=== PATIENT | male | born 1950 | race Caucasian/White ===

== ENCOUNTER 2018-12-31 08:46 | Inpatient (IN) ==
--- NOTE | 2018-12-31 08:31 | Anesthesia Evaluation PreOp ---
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 HX Other Medical History: Hepatic (cirrhosis) Anesthesia History: Past Anesthesia, Problems (PONV) Alcohol Use: none Drug use: none Medications and Allergies Cholecalciferol (D-3) [Vitamin D] 1,000 unit PO DAILY 02/02/18 [History] Cyanocobalamin (Vitamin B-12) [Vitamin B-12] 1,000 mcg PO DAILY 02/02/18 [History] Furosemide [Lasix] 20 mg PO DAILY 02/02/18 [History] Ipratropium/Albuterol Neb [Duoneb] 3 ml IH Q4-6H PRN 02/02/18 [History] Levothyroxine [Synthroid] 25 mcg PO 30 02/02/18 [History] Magnesium Oxide [Magnesium] 400 mg PO DAILY 02/02/18 [History] Metoprolol Tartrate 50 mg PO BID 02/02/18 [History] Ondansetron HCl 4 mg PO Q8H PRN 02/02/18 [History] Oxycodone HCl 5 mg PO BID 02/02/18 [History] Pantoprazole Sodium [Protonix] 40 mg PO DAILY 02/02/18 [History] Potassium Chloride [K-Tab ER] 20 meq PO BID 02/02/18 [History] Pravastatin Sodium [Pravachol] 40 mg PO HS 02/02/18 [History] Tamsulosin [Flomax] 0.4 mg PO DAILY 02/02/18 [History] Vitamin E (Dl,Tocopheryl Acet) [Vitamin E] 400 unit PO DAILY 02/02/18 [History] Iron Ps Complex/B12/Folic Acid [Poly-Iron 150 Forte Capsule] 1 each PO BID 03/11/18 [History] Polyethylene Glycol 3350 [MiraLAX] 17 gm PO DAILY 03/11/18 [History] Tizanidine HCl 4 mg PO DAILY 03/11/18 [History] Rivaroxaban [Xarelto] 10 mg PO DAILY #30 tablet 04/01/18 [Rx] Allergy/AdvReac Type Severity Reaction Status Date / Time heparin Allergy Rash Verified 12/04/18 14:32 levothyroxine sodium Allergy Rash Verified 12/04/18 14:32 sulfamethoxazole Allergy Rash Verified 12/04/18 14:32 [From Bactrim] trimethoprim [From Bactrim] Allergy Rash Verified 12/04/18 14:32 - Meds/Allergy Pre-op Review Medications Reviewed: Yes Allergies Reviewed: Yes Beta Blockers on Current Med List: Yes If Beta Blockers taken, Date/Time (Last Dose taken): today 0700 Anesthesia Results - Labs Laboratory Tests 12/28/18 12/28/18 10:20 10:20 Hgb 12.7 L Hct 39.4 Plt Count 72 L Sodium 141 Potassium 3.5 BUN 9 Creatinine 0.89 - Imaging EKG: report reviewed (SINUS RHYTHM) Anesthesia Exam Selected Entries 12/31/18 09:09 Temperature 98.2 F Pulse Rate 73 Respiratory Rate 18 Blood Pressure 114/74 O2 Sat by Pulse Oximetry 99 Weight: 93kg BMI 32 NPO (# of Hours): 8 - HEENT Pupil (Motor): EOMI Mallampati: II Teeth: Edentulous Oral Opening: Greater than 3 - 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
[2018-12-31] MEDS ORDERED: CeFAZolin Syr 2,000MG/20 ML 2,000 MG/20 ML SYRINGE IVPB ONE (09:04)
[2018-12-31] MEDS ORDERED: Ringers Solution, Lactated 1,000 ML IVC SCH ×2 (09:15→09:30)
[2018-12-31] MEDS ORDERED: *HR* Promethazine 25 MG/ML VIAL IVP PRN (09:21)
[2018-12-31] MEDS ORDERED: *HR* OxyCODONE Immed Rel 5 MG TABLET PO PRN (09:21)
[2018-12-31] MEDS ORDERED: *HR* HYDROmorphone (PF) 1 MG/ML SYRINGE IVP PRN (09:21)
[2018-12-31] MEDS ORDERED: Ketorolac 15 MG/ML VIAL IVP ONE (09:21)
--- NOTE | 2018-12-31 09:55 | History & Physical Report ---
Date of Encounter: 12/31/18 Time of Encounter: 09:55 24 Hour HP Update - Instructions Instructions: If the History and Physical is less than 30 days old and was completed prior to A.M. admission and or procedure and has NOT been updated on calendar day of procedure please complete this update prior to performing procedure. - Update Patient reports changes in Medical Condition: No Changes in examination, assessment, or condition: No Changes in Medication: No Preop tests/diagnostics Reviewed: Yes Pre-Op MRSA Screen: Negative Surgery Remains Indicated: Yes Consent for Planned Operative Procedure(s) Verified: Yes - Pre-Operative Checklist Preoperative Checklist Indicated: Yes Prophylactic Antibiotic Ordered: Yes Home Medications Include Beta Grace: Yes Beta Grace Taken Today (Day of Surgery): Yes Beta Grace Taken Yesterday (Day Prior to Surgery): Yes Is VTE Prophylaxis Indicated?: Yes
[2018-12-31] MEDS ORDERED: Lidocaine 1% 20 ML MDV ONE (10:08)
--- NOTE | 2018-12-31 11:21 | Operative Note ---
Date of procedure: 12/31/18 Pre-op diagnosis: pleural effusion Post-op diagnosis: same Procedure: bronchoscopy right vats pleural bx pleurx catheter insertion Implants: pleurx Anesthesia: GETA Surgeon: Jass Reyes Was there an psychological assistant present: No Estimated blood loss (cc): 10 Specimen: pleura Condition: stable Disposition: PACU Procedure in Detail: The patient was brought to the operating room and placed on the operating table in the supine position. After undergoing general anesthesia with sequential compressive devices on bilateral lower extremities and perioperative antibiotics on board, bronchoscopy was performed as the patient has had a history of stage III B non-small cell lung cancer treated with concurrent chemotherapy and radiation therapy. There was significant extrinsic compression of the right middle lobe bronchus. No endobronchial masses were appreciated. Patient was placed on the operating room table in the left lateral decubitus position with care to pad all pressure points, prepped, and draped in the usual sterile fashion. 2 thoracoscopy ports are placed and 970 mL of serous fluid was evacuated from the right pleural space. Pleural biopsy obtain what appeared to be chronic pleuritis. The lung only insufflated approximately 85% to fill the thoracic cavity. The Pleurx catheter was placed through the thoracoscopy ports into the pleural space. The incisions were closed in layers of 0 Vicryl, 0 Vicryl, and 4-0 Monocryl subcuticular stitches with dressings consisting of Steri-Strips and sterile gauze. Patient was extubated and taken to the recovery room.
--- NOTE | 2018-12-31 12:08 | Anesthesia Evaluation Post Op ---
Date of Encounter: 12/31/18 Time of Encounter: 12:07 - Vital Signs Vital Signs: Selected Entries 12/31/18 11:49 12/31/18 11:59 Temperature 97.0 F L Pulse Rate 84 Respiratory Rate 16 Blood Pressure 118/73 O2 Sat by Pulse Oximetry 100 - Lungs Lungs: Clear Ascult./Percussion - Airway Airway: Non-obstructed - Cardiovascular Regular Rate - Mental Status Mental Status: Alert & Oriented, Answers Appropriately - Pain Pain Scale: 4 Pain Scale used: Numeric (1 - 10) - Nausea Vomiting Nausea Vomiting: Not Present - Hydration Hydration: Ice chips, Has not voided - Discharge PostOp Status: Transfer Patient to floor
[2018-12-31] MEDS ORDERED: Naloxone 0.4 MG/ML INJ IVP PRN (12:58)
[2018-12-31] MEDS: *HR* HYDROcodone/Acet 5/325 mg TABLET PO PRN ×2 (13:24→19:38)
[2018-12-31] MEDS: Furosemide 40 MG TABLET PO SCH (13:24)
[2018-12-31] MEDS: 0.9 % Sodium Chloride 1,000 ML IVC SCH (13:28)
[2018-12-31] MEDS: Ipratropium/Albuterol Neb 3 ML IH SCH ×3 (13:54→20:14)
[2018-12-31] MEDS: Gabapentin 300 MG CAPSULE PO SCH ×2 (14:40→20:29)
[2018-12-31 19:54] LABS: Immature Granulocytes % 0.3 % (0-4); Mean Platelet Volume 9.3 fL (9.4-12.4); Monocytes % 4.4 %; Red Blood Count 4.84 M/mcL (4.19-5.50)
[2018-12-31 19:55] LABS: Basophils % 0.3 %; Eosinophils % 0.5 %; Hematocrit 42.3 % (37.5-50.1); Hemoglobin 13.6 g/dL (12.9-16.9); Immature Platelets 1.6 % (1.1-6.1); Lymphocytes # 0.2 K/mcL (0.6-4.6); Lymphocytes % 6.5 %; Mean Corpuscular HGB Conc 32.2 g/dL (31.6-35.5); Mean Corpuscular Hemoglobin 28.1 pg (28.0-33.3); Mean Corpuscular Volume 87.4 fL (83.0-100.0); Monocytes # 0.2 K/mcL (0.0-1.3); White Blood Count 3.7 K/mcL (4.3-11.1)
[2018-12-31 20:05] LABS: Neutrophils # 3.3 K/mcL (1.6-8.9); Platelet Count 51 K/mcL (140-400)
[2018-12-31 20:24] LABS: Platelet Estimate Decreased (Normal)
[2018-12-31] MEDS: Levalbuterol Neb 1.25 MG/3 ML IH SCH ×2 (20:25→23:51)
[2018-12-31] MEDS: Ipratropium Neb 0.5 MG NEBULIZER IH SCH ×2 (20:25→23:51)
[2018-12-31] MEDS: Famotidine 20 MG TABLET PO SCH (20:27)
[2018-12-31] MEDS: tiZANidine 4 MG TABLET PO SCH (20:28)
[2018-12-31] MEDS: Sennosides/Docusate Sodium TABLET PO SCH (20:28)
[2018-12-31] MEDS: *HR* OxyCODONE Immed Rel 5 MG TABLET PO SCH (20:28)
[2019-01-01] MEDS: *HR* HYDROcodone/Acet 5/325 mg TABLET PO PRN ×2 (00:26→16:14)
[2019-01-01] MEDS: Ipratropium Neb 0.5 MG NEBULIZER IH SCH ×5 (03:55→20:58)
[2019-01-01] MEDS: Levalbuterol Neb 1.25 MG/3 ML IH SCH ×5 (03:55→20:58)
[2019-01-01] MEDS: 0.9 % Sodium Chloride 1,000 ML IVC SCH (04:59)
[2019-01-01] MEDS: Levothyroxine 25 MCG TABLET PO SCH (04:59)
[2019-01-01 05:37] LABS: Hematocrit 33.4 % (37.5-50.1); Mean Corpuscular HGB Conc 32.6 g/dL (31.6-35.5); Mean Corpuscular Hemoglobin 28.3 pg (28.0-33.3); Mean Corpuscular Volume 86.8 fL (83.0-100.0); Mean Platelet Volume 9.1 fL (9.4-12.4); Red Blood Count 3.85 M/mcL (4.19-5.50); Red Cell Distribution Width 14.8 % (11.5-14.5); White Blood Count 4.5 K/mcL (4.3-11.1)
[2019-01-01 05:39] LABS: Hemoglobin 10.9 g/dL (12.9-16.9); Platelet Count 59 K/mcL (140-400)
[2019-01-01 05:59] LABS: BUN/Creatinine Ratio 16 (6-26); Blood Urea Nitrogen 14 mg/dL (8-23); Calcium 8.8 mg/dL (8.6-10.3); Carbon Dioxide 22 mEq/L (23-29); Chloride 106 mEq/L (98-107); Glucose 144 mg/dL (70-105); Magnesium 1.7 mg/dL (1.6-2.6); Osmolality,Calculated 287 (280-300); Sodium 137 mEq/L (136-145); eGFR For African Americans > 60 (> 60); eGFR For Non-African Americans > 60 (> 60)
[2019-01-01] MEDS: Sennosides/Docusate Sodium TABLET PO SCH ×2 (08:02→19:36)
[2019-01-01] MEDS: Gabapentin 300 MG CAPSULE PO SCH ×3 (08:02→19:36)
[2019-01-01] MEDS: Famotidine 20 MG TABLET PO SCH ×2 (08:03→19:35)
[2019-01-01] MEDS: *HR* OxyCODONE Immed Rel 5 MG TABLET PO SCH ×2 (08:03→19:36)
[2019-01-01] MEDS ORDERED: Magnesium Sulfate 3 GM in 0.9 % Sodium Chloride 100 ML IVPB ONE (09:21)
[2019-01-01] MEDS ORDERED: Potassium Chloride Elixir 20 MEQ/15 ML UDC PO ONE (09:21)
--- NOTE | 2019-01-01 09:59 | Physician Discharge Referral ---
Home Health/Hosp Referral Info Transfer to: Home Health Attending Provider: diana Provider in Charge Post Discharge: Other (wilfredo) Compass Care: drain the pleurx catheter every mon, wed, fri starting 01/04/19 - Diagnosis (1) Pleural cavity effusion Priority: Primary Status: Chronic - Respiratory Orders Smoking Cessation: Smoking cessation has been advised. For more information, call the [place] Tobacco Quit Line at 4-315-JELO-NOW. - Dressing/Wound Care Site: right lateral chest wall Type of Dressing/Treatments w/Frequency: supplied in pleurx home care kit - Diet/Nutrition Diet/Nutrition Orders: Regular - Activity Activity Orders: Up ad miri - Services Needed Following services are medically necessary services: Nursing Other Treatments: drain the pleurx catheter every mon, wed, fri starting 01/04/19 - Transfer Medications Home Medications: Cholecalciferol (D-3) [Vitamin D] 4,000 unit PO DAILY 02/02/18 [History] Cyanocobalamin (Vitamin B-12) [Vitamin B-12] 1,000 mcg PO DAILY 02/02/18 [History] Furosemide [Lasix] 20 mg PO 1200 02/02/18 [History] Ipratropium/Albuterol Neb [Duoneb] 3 ml IH Q4-6H PRN 02/02/18 [History] Levothyroxine [Synthroid] 25 mcg PO 0630 02/02/18 [History] Magnesium Oxide [Magnesium] 400 mg PO DAILY 02/02/18 [History] Metoprolol Tartrate 50 mg PO BID 02/02/18 [History] Ondansetron HCl 4 mg PO Q8H PRN 02/02/18 [History] Oxycodone HCl 5 mg PO BID 02/02/18 [History] Pantoprazole Sodium [Protonix] 40 mg PO DAILY 02/02/18 [History] Potassium Chloride [K-Tab ER] 20 meq PO BID 02/02/18 [History] Pravastatin Sodium [Pravachol] 40 mg PO HS 02/02/18 [History] Tamsulosin [Flomax] 0.4 mg PO DAILY 02/02/18 [History] Iron Ps Complex/B12/Folic Acid [Poly-Iron 150 Forte Capsule] 1 cap PO BID 03/11/18 [History] Polyethylene Glycol 3350 [MiraLAX] 17 gm PO DAILY 03/11/18 [History] Tizanidine HCl 4 mg PO HS 03/11/18 [History] Allergies/Adverse Reactions: Allergy/AdvReac Type Severity Reaction Status Date / Time heparin Allergy Rash Verified 12/31/18 09:38 levothyroxine sodium Allergy Rash Verified 12/31/18 09:38 sulfamethoxazole Allergy Rash Verified 12/31/18 09:38 [From Bactrim] trimethoprim [From Bactrim] Allergy Rash Verified 12/31/18 09:38 Certification: Further, I certify that my clinical findings support that this patient is homebound (i.e. absences from home require considerable and taxing effort and are for medical reasons or [employer]isc[employer] services or infrequently or short duration when for other reasons) because: Homebound Reason: Patient requires assistance of a person or device to safely leave home Attestation: My signature below is to certify that this patient is under my care and that I, or nurse practitioner, or a physician's speech pathologist assistant working with me, has a [id number] encounter with this patient.
--- NOTE | 2019-01-01 10:03 | Cardiothoracic Progress Note ---
Date of Encounter: 01/01/19 Time of Encounter: 10:01 - Assessment and plan (1) Pleural cavity effusion Current Visit: Yes Status: Chronic The assessment and plan as outlined above was discussed with the patient and/or family members who expressed understanding and agreement. All questions were answered. (2) Cancer of upper lobe of right lung Current Visit: No Status: Chronic The assessment and plan as outlined above was discussed with the patient and/or family members who expressed understanding and agreement. All questions were answered. explained to patient no evidence of recurrent disease (3) Hypothyroidism determined by thyroid function test Current Visit: No Status: Chronic The assessment and plan as outlined above was discussed with the patient and/or family members who expressed understanding and agreement. All questions were answered. continue current replacement Vital Signs, Last 4 Hours Temp Pulse Resp BP Pulse Ox 01/01/19 08:15 92 01/01/19 07:39 16 100 01/01/19 07:27 97.7 F 91 18 108/67 99 Oxgyen Flow Rate Oxygen Flow Rate (LPM) 2 Clinical Data, last 8 Hours Output, Urine Amount 0 Weight 12/30/18 12/31/18 01/01/19 23:59 23:59 23:59 Weight 92.533 kg 93.1 kg - Physical Examination General: Conversant, No Apparent Distress, Well developed HEENT: Atraumatic, Normocephaly Cardiac: Reg Rate and Rhythm Incision: No signs of infection, Other (moist dressing changed. informed nurse ) Lungs: Normal Breath Sounds Neuro: Alert and responsive, No focal deficits noted, Cranial nerves intact, Motor nerves intact Abdomen: Soft - Labs 01/01/19 05:14 01/01/19 05:14 Lab Results, Last 24 hours 12/31/18 01/01/19 01/01/19 19:43 05:14 05:14 WBC 3.7 L 4.5 Hgb 13.6 10.9 L D Hct 42.3 33.4 L Plt Count 51 L 59 L Sodium 137 Potassium 4.0 Chloride 106 Carbon Dioxide 22 L BUN 14 Creatinine 0.87 Glucose 144 H Calcium 8.8 Magnesium 1.7 - Imaging Chest Xray: image reviewed Consult Discharge Plan - Plan Referrals: Xochitl Kwok, ANDREEA [Primary Care Provider] -
[2019-01-01] MEDS: Furosemide 40 MG TABLET PO SCH (11:06)
[2019-01-01] MEDS: tiZANidine 4 MG TABLET PO SCH (19:35)
[2019-01-02] MEDS: Ipratropium Neb 0.5 MG NEBULIZER IH SCH ×3 (00:43→07:38)
[2019-01-02] MEDS: Levalbuterol Neb 1.25 MG/3 ML IH SCH ×3 (00:43→07:38)
[2019-01-02] MEDS: Levothyroxine 25 MCG TABLET PO SCH (06:29)
[2019-01-02 07:21] VITALS: BP 102/74
[2019-01-02] MEDS: Sennosides/Docusate Sodium TABLET PO SCH (08:05)
[2019-01-02] MEDS: Gabapentin 300 MG CAPSULE PO SCH (08:05)
[2019-01-02] MEDS: Famotidine 20 MG TABLET PO SCH (08:05)
[2019-01-02] MEDS: *HR* OxyCODONE Immed Rel 5 MG TABLET PO SCH (08:06)
--- NOTE | 2019-01-02 08:53 | Discharge Summary ---
Orders not resulted at time of discharge: Pending orders 12/31/18 10:59 Surgical Pathology [PTH] Routine 12/31/18 19:43 Platelets [BBK] Stat Type and Screen [BBK] Stat Date of Encounter: 01/02/19 Time of Encounter: 08:49 - Discharge Diagnosis (1) Pleural cavity effusion Priority: Primary Status: Chronic (2) Cancer of upper lobe of right lung Priority: Secondary Status: Chronic (3) Hypothyroidism determined by thyroid function test Priority: Secondary Status: Chronic - Hospital Course Hospital course: Mr. Reid is a 68 year old male - Time Spent with Patient Total time spent providing and/or coordinating discharge services: - Discharge Medications Prescriptions: No Action Cholecalciferol (D-3) [Vitamin D] 4,000 unit PO DAILY Cyanocobalamin (Vitamin B-12) [Vitamin B-12] 1,000 mcg PO DAILY Furosemide [Lasix] 20 mg PO 1200 Ipratropium/Albuterol Neb [Duoneb] 3 ml IH Q4-6H PRN PRN Reason: Shortness Of Breath Levothyroxine [Synthroid] 25 mcg PO 0630 Magnesium Oxide [Magnesium] 400 mg PO DAILY Metoprolol Tartrate 50 mg PO BID Ondansetron HCl 4 mg PO Q8H PRN PRN Reason: Nausea Oxycodone HCl 5 mg PO BID Pantoprazole Sodium [Protonix] 40 mg PO DAILY Potassium Chloride [K-Tab ER] 20 meq PO BID Pravastatin Sodium [Pravachol] 40 mg PO HS Tamsulosin [Flomax] 0.4 mg PO DAILY Iron Ps Complex/B12/Folic Acid [Poly-Iron 150 Forte Capsule] 1 cap PO BID Polyethylene Glycol 3350 [MiraLAX] 17 gm PO DAILY Tizanidine HCl 4 mg PO HS Home Medications: Cholecalciferol (D-3) [Vitamin D] 4,000 unit PO DAILY 02/02/18 [History] Cyanocobalamin (Vitamin B-12) [Vitamin B-12] 1,000 mcg PO DAILY 02/02/18 [History] Furosemide [Lasix] 20 mg PO 1200 02/02/18 [History] Ipratropium/Albuterol Neb [Duoneb] 3 ml IH Q4-6H PRN 02/02/18 [History] Levothyroxine [Synthroid] 25 mcg PO 0630 02/02/18 [History] Magnesium Oxide [Magnesium] 400 mg PO DAILY 02/02/18 [History] Metoprolol Tartrate 50 mg PO BID 02/02/18 [History] Ondansetron HCl 4 mg PO Q8H PRN 02/02/18 [History] Oxycodone HCl 5 mg PO BID 02/02/18 [History] Pantoprazole Sodium [Protonix] 40 mg PO DAILY 02/02/18 [History] Potassium Chloride [K-Tab ER] 20 meq PO BID 02/02/18 [History] Pravastatin Sodium [Pravachol] 40 mg PO HS 02/02/18 [History] Tamsulosin [Flomax] 0.4 mg PO DAILY 02/02/18 [History] Iron Ps Complex/B12/Folic Acid [Poly-Iron 150 Forte Capsule] 1 cap PO BID 03/11/18 [History] Polyethylene Glycol 3350 [MiraLAX] 17 gm PO DAILY 03/11/18 [History] Tizanidine HCl 4 mg PO HS 03/11/18 [History] Allergies/Adverse Reactions: Allergy/AdvReac Type Severity Reaction Status Date / Time heparin Allergy Rash Verified 12/31/18 09:38 levothyroxine sodium Allergy Rash Verified 12/31/18 09:38 sulfamethoxazole Allergy Rash Verified 12/31/18 09:38 [From Bactrim] trimethoprim [From Bactrim] Allergy Rash Verified 12/31/18 09:38 Date of admission: 12/31/18 12:15 Primary care physician: MEMO Long Consults: 12/31/18 12:58 Consult to Staff Trainer [CONS] Routine Reason for SW Consult: home care for pleurx catheter every mon, wed, fri starting 01/0412/31/18 13:43 Consult to Staff Trainer [CONS] Routine Reason for SW Consult: home care with pleurax drain Procedure(s) Performed: bronchoscopy, right vats pleural bx, pleurx catheter insertion Discharging clinician: Jass Reyes Anticipated date of discharge: 01/02/19 Physical Examination Vital Signs, Last 4 Hours Temp Pulse Resp BP Pulse Ox 01/02/19 07:41 87 01/02/19 07:38 16 99 01/02/19 07:20 97.7 F 89 18 102/74 97 General: Conversant, No Apparent Distress, Well developed, Well nourished HEENT: Atraumatic, Normocephaly Cardiac: Reg Rate and Rhythm, Normal S1 and S2 Neuro: Alert and responsive, No focal deficits noted Abdomen: Soft Skin: Other (dressing dry and intact ) - Patient Status Disposition: Home, Self-Care Condition: Good Functional capacity at discharge: independent ambulation Overall status at discharge: patient is progressing back to baseline - Discharge Instructions Follow Up With: Jass Reyes MD [Partnered Physician] - 01/18/19 9:45 am Anay Medeiros MD [Non-Partnered Physician] - 01/13/19 11:40 am - Diet and Activity Diet: regular diet Additional instructions: may drive. keep dressing dry
== END 2019-01-02 11:01 | disposition home or self-care (01) | DRG 168 ==
LOC: SAMDAY 08:46 → 2NNU 12:15
PROVIDERS: ADMIT Thoracic Surgery (Cardiothoracic Vascular Surgery); ATTEND Thoracic Surgery (Cardiothoracic Vascular Surgery)

== ENCOUNTER 2020-02-21 22:10 | Inpatient (IN) ==
[2020-02-22] MEDS ORDERED: Naloxone 0.4 MG/ML INJ IVP PRN (01:31)
[2020-02-22] MEDS ORDERED: 0.9 % Sodium Chloride 1,000 ML IVC SCH (01:45)
[2020-02-22 06:05] LABS: Basophils % 0.5 %; Hemoglobin 8.8 g/dL (12.9-16.9); Immature Granulocytes % 0.3 % (0-4)
[2020-02-22 06:07] LABS: Eosinophils # 0.1 K/mcL (0.0-0.6); Eosinophils % 1.5 %; Hematocrit 27.3 % (37.5-50.1); Lymphocytes # 0.4 K/mcL (0.6-4.6); Lymphocytes % 11.2 %; Mean Corpuscular HGB Conc 32.2 g/dL (31.6-35.5); Mean Corpuscular Hemoglobin 27.6 pg (28.0-33.3); Mean Corpuscular Volume 85.6 fL (83.0-100.0); Mean Platelet Volume 11.1 fL (9.4-12.4); Monocytes # 0.6 K/mcL (0.0-1.3); Monocytes % 14.2 %; Red Blood Count 3.19 M/mcL (4.19-5.50); Red Cell Distribution Width 16.9 % (11.5-14.5); Segmented Neutrophils % 72.3 %; White Blood Count 3.9 K/mcL (4.3-11.1)
[2020-02-22 06:10] LABS: INR 1.9
[2020-02-22 06:13] LABS: Activated Partial Thrombo Time 36.8 Seconds (26.0-36.0)
[2020-02-22 06:27] LABS: Alanine Aminotransferase 11 Units/L (7-52); Albumin 2.4 g/dL (3.5-5.7); Albumin/Globulin Ratio 0.9 (1.1-2.2); Alkaline Phosphatase 70 Units/L (34-104); Aspartate Amino Transferase 12 Units/L (13-39); BUN/Creatinine Ratio 13 (6-26); Bilirubin,Total 1.9 mg/dL (0.3-1.0); Blood Urea Nitrogen 14 mg/dL (8-23); Calcium 8.5 mg/dL (8.6-10.3); Carbon Dioxide 25 mEq/L (23-29); Chloride 106 mEq/L (98-107); Globulin 2.8 g/dL (2.4-3.5); Glucose 95 mg/dL (70-105); Neutrophils # 2.8 K/mcL (1.6-8.9); Osmolality,Calculated 286 (280-300); Platelet Count 50 K/mcL (140-400); Potassium 3.4 mEq/L (3.5-5.1); Sodium 138 mEq/L (136-145); Total Protein 5.2 g/dL (6.4-8.9); eGFR For African Americans > 60 (> 60); eGFR For Non-African Americans > 60 (> 60)
[2020-02-22] MEDS ORDERED: Ipratropium/Albuterol Neb 3 ML IH PRN (08:58)
[2020-02-22] MEDS ORDERED: Lidocaine -MPF 4% 5 ML AMPUL ONE (09:40)
[2020-02-22] MEDS ORDERED: *HR* FentaNYL (PF) 100 MCG/2 ML VIAL ONE (09:40)
[2020-02-22] MEDS ORDERED: Lidocaine -MPF 2% 2 ML VIAL ONE (09:40)
[2020-02-22] MEDS ORDERED: Dexamethasone 4 MG/ML VIAL ONE (09:40)
[2020-02-22] MEDS ORDERED: Ondansetron 4 MG/2 ML VIAL ONE (09:40)
[2020-02-22] MEDS ORDERED: *HR* Propofol 200 MG/20 ML VIAL IVP ONE (09:40)
[2020-02-22] MEDS ORDERED: *HR* Metoprolol 5 MG/5 ML VIAL IVP ONE (09:44)
[2020-02-22] MEDS ORDERED: Ipratropium/Albuterol Neb 3 ML ONE (10:21)
[2020-02-22] MEDS ORDERED: Azithromycin 250 MG TABLET PO SCH (11:30)
[2020-02-22] MEDS: cefTRIAXone 1,000 MG in Water for inj. (sterile) 10 ML IVP SCH (11:38)
[2020-02-22] MEDS ORDERED: *HR* Succinylcholine 200 MG/10 ML VIAL IVP ONE (12:33)
[2020-02-22] MEDS ORDERED: Lactulose Oral Soln 20 GM/30 ML UDC PO PRN (13:42)
[2020-02-22] MEDS ORDERED: hydrOXYzine pamoate 25 MG CAPSULE PO PRN (14:06)
[2020-02-22] MEDS: Levalbuterol Neb 1.25 MG/3 ML IH SCH ×2 (15:55→22:06)
[2020-02-22] MEDS: levoFLOXacin 750 MG TABLET PO SCH (17:25)
[2020-02-22 19:11] LABS: Appearance of Body Fluid Hazy (Clear); Volume of Body Fluid 10 mL
[2020-02-22 20:14] LABS: Appearance of Body Fluid Cloudy (Clear); Volume of Body Fluid 15 mL
[2020-02-23 05:24] LABS: Hemoglobin 10.1 g/dL (12.9-16.9); Immature Granulocytes % 0.4 % (0-4)
[2020-02-23 05:26] LABS: Hematocrit 31.3 % (37.5-50.1); Immature Platelets 1.4 % (1.1-6.1); Lymphocytes # 0.2 K/mcL (0.6-4.6); Lymphocytes % 3.8 %; Mean Corpuscular HGB Conc 32.3 g/dL (31.6-35.5); Mean Corpuscular Hemoglobin 27.7 pg (28.0-33.3); Mean Platelet Volume 9.6 fL (9.4-12.4); Monocytes # 0.3 K/mcL (0.0-1.3); Monocytes % 5.2 %; Neutrophils # 5.1 K/mcL (1.6-8.9); Red Blood Count 3.64 M/mcL (4.19-5.50); Red Cell Distribution Width 16.4 % (11.5-14.5); Segmented Neutrophils % 90.6 %; White Blood Count 5.6 K/mcL (4.3-11.1)
[2020-02-23 05:38] LABS: Platelet Count 51 K/mcL (140-400)
[2020-02-23 05:42] LABS: BUN/Creatinine Ratio 17 (6-26); Blood Urea Nitrogen 16 mg/dL (8-23); Calcium 8.5 mg/dL (8.6-10.3); Carbon Dioxide 24 mEq/L (23-29); Chloride 105 mEq/L (98-107); Glucose 121 mg/dL (70-105); Osmolality,Calculated 284 (280-300); Potassium 3.6 mEq/L (3.5-5.1); Sodium 136 mEq/L (136-145); eGFR For African Americans > 60 (> 60); eGFR For Non-African Americans > 60 (> 60)
[2020-02-23] MEDS ORDERED: Cholecalciferol (D-3) 1,000 UNIT (25MCG) TABLET PO SCH (09:00)
[2020-02-23] MEDS ORDERED: (Eplerenone [Inspra] 25 MG) PO SCH (09:00)
[2020-02-23] MEDS ORDERED: Magnesium Oxide 400 MG TABLET PO SCH (09:00)
[2020-02-23] MEDS ORDERED: Cyanocobalamin (B-12) 1,000 MCG TABLET PO SCH (09:00)
[2020-02-23] MEDS ORDERED: Bumetanide 1 MG TABLET PO SCH (09:00)
[2020-02-23] MEDS: levoFLOXacin 750 MG TABLET PO SCH (09:37)
[2020-02-23] MEDS: cefTRIAXone 1,000 MG in Water for inj. (sterile) 10 ML IVP SCH (09:38)
[2020-02-23] MEDS: Levalbuterol Neb 1.25 MG/3 ML IH SCH (10:54)
[2020-02-23 11:16] VITALS: BP 120/64
== END 2020-02-23 12:11 | disposition home or self-care (01) | DRG 871 ==
LOC: 3ANU → SUATTDRO 02-22 00:26
PROVIDERS: ADMIT Student in an Organized Health Care Education/Training Program; ATTEND Internal Medicine